=== PATIENT | male | born 1990 | race Caucasian/White ===

== ENCOUNTER 2018-10-14 15:13 | Inpatient (IN) | payer OTHER ==
[2018-10-14] MEDS ORDERED: DOCUSATE SODIUM 100 MG CAP PO (16:00)
[2018-10-14] MEDS ORDERED: ONDANSETRON 4 MG INJ IV (16:00)
[2018-10-14] MEDS ORDERED: NACL 0.9% 3 ML SYG IV (16:00)
[2018-10-14] MEDS: SOD CHLORIDE 0.9% 1,000 ML IV (16:38)
[2018-10-14] MEDS: CEFTRIAXONE 1 GM/50 ML (PMX) 50 ML IVPB (16:38)
[2018-10-14 17:34] LABS: INR 0.96; PROTIME 12.9 Sec (11.9-14.9)
[2018-10-14] MEDS: metroNIDAZOLE 500 MG/NS (PMX) 100 ML IVPB (22:28)
[2018-10-15] MEDS: morphine 2 MG INJ IV ×2 (03:19→07:34)
[2018-10-15 05:21] LABS: ADD MAN DIFF? NO
[2018-10-15 05:27] LABS: BASOPHILS % 0.3 % (0.0-2.0); EOSINOPHILS # 0.2 10^3/ul (0.0-0.5); EOSINOPHILS % 2.1 % (0.0-7.0); HEMATOCRIT 43.7 % (42.0-52.0); HEMOGLOBIN 14.7 g/dl (14.0-18.0); LYMPHOCYTES # 1.9 10^3/ul (0.8-2.9); LYMPHOCYTES % 21.3 % (15.0-51.0); MEAN CORPUSCULAR HEMOGLOBIN 30.7 pg (29.0-33.0); MEAN CORPUSCULAR HGB CONC 33.6 g/dl (32.0-37.0); MEAN CORPUSCULAR VOLUME 91.2 fl (82.0-101.0); MEAN PLATELET VOLUME 9.2 fl (7.4-10.4); MONOCYTE # 0.7 10^3/ul (0.3-0.9); MONOCYTES % 8.2 % (0.0-11.0); NEUTROPHIL # 6.1 10^3/ul (1.6-7.5); NEUTROPHILS % 67.8 % (39.0-77.0); PLATELET COUNT 383 10^3/UL (140-415); RED BLOOD COUNT 4.79 10^6/ul (4.70-6.10)
[2018-10-15] MEDS: metroNIDAZOLE 500 MG/NS (PMX) 100 ML IVPB ×3 (05:31→21:53)
[2018-10-15] MEDS: PANTOPRAZOLE 40 MG INJ IV (05:31)
[2018-10-15] MEDS: SOD CHLORIDE 0.9% 1,000 ML IV ×2 (05:41→10:48)
[2018-10-15 05:53] LABS: ALANINE AMINOTRANSFERASE 38 IU/L (13-69); ALBUMIN 4.9 g/dl (3.3-4.9); ALBUMIN/GLOBULIN RATIO 1.88; ALKALINE PHOSPHATASE 85 IU/L (42-121); ANION GAP 11 (5-13); ASPARTATE AMINO TRANSFERASE 31 IU/L (15-46); BILIRUBIN,INDIRECT 0.4 mg/dl (0-1.1); BILIRUBIN,TOTAL 0.4 mg/dl (0.2-1.3); BLOOD UREA NITROGEN 9 mg/dl (7-20); CALCIUM 9.2 mg/dl (8.4-10.2); CARBON DIOXIDE 30 mmol/L (21-31); CHLORIDE 103 mmol/L (97-110); CREATININE 0.58 mg/dl (0.61-1.24); Estimated GFR > 60 mL/min (>60); GLUCOSE 91 mg/dl (70-220); PHOSPHORUS 4.5 mg/dl (2.5-4.9); POTASSIUM 3.9 mmol/L (3.5-5.1); SODIUM 144 mmol/L (135-144); TOTAL PROTEIN 7.5 g/dl (6.1-8.1)
[2018-10-15] MEDS: HYDROmorphONE 1 MG/ML SYG IV ×4 (08:44→21:53)
[2018-10-15] MEDS ORDERED: INFLUENZA VIRUS VACCINE 0.5 ML (DISPENSING) IM* (09:00)
[2018-10-15] MEDS ORDERED: HYDROmorphONE 1 MG/ML SYG IV (11:01)
[2018-10-15] MEDS: DEXTROSE 5%-0.45% NACL 1,000 ML IV (14:45)
[2018-10-15] MEDS: CEFTRIAXONE 1 GM/50 ML (PMX) 50 ML IVPB (17:37)
[2018-10-16] MEDS: HYDROmorphONE 1 MG/ML SYG IV ×3 (01:50→11:45)
[2018-10-16] MEDS: PANTOPRAZOLE 40 MG INJ IV (05:30)
[2018-10-16] MEDS: metroNIDAZOLE 500 MG/NS (PMX) 100 ML IVPB ×3 (05:30→21:39)
[2018-10-16] MEDS: DEXTROSE 5%-0.45% NACL 1,000 ML IV ×2 (05:31→16:06)
[2018-10-16 05:39] LABS: ADD MAN DIFF? NO
[2018-10-16 05:45] LABS: BASOPHILS % 0.2 % (0.0-2.0); EOSINOPHILS % 0.1 % (0.0-7.0); HEMATOCRIT 46.5 % (42.0-52.0); LYMPHOCYTES # 1.4 10^3/ul (0.8-2.9); LYMPHOCYTES % 8.6 % (15.0-51.0); MEAN CORPUSCULAR HEMOGLOBIN 30.7 pg (29.0-33.0); MEAN CORPUSCULAR HGB CONC 34.4 g/dl (32.0-37.0); MEAN CORPUSCULAR VOLUME 89.1 fl (82.0-101.0); MONOCYTE # 1.4 10^3/ul (0.3-0.9); MONOCYTES % 8.8 % (0.0-11.0); NEUTROPHIL # 13.1 10^3/ul (1.6-7.5); NEUTROPHILS % 81.9 % (39.0-77.0); PLATELET COUNT 407 10^3/UL (140-415); RED BLOOD COUNT 5.22 10^6/ul (4.70-6.10)
[2018-10-16 06:06] LABS: AMYLASE 47 U/L (11-123)
[2018-10-16 06:06] LABS: LIPASE 32 U/L (23-300)
[2018-10-16 06:08] LABS: PHOSPHORUS 3.9 mg/dl (2.5-4.9)
[2018-10-16 06:25] LABS: ALANINE AMINOTRANSFERASE 36 IU/L (13-69); ALBUMIN/GLOBULIN RATIO 1.85; ALKALINE PHOSPHATASE 92 IU/L (42-121); ANION GAP 12 (5-13); ASPARTATE AMINO TRANSFERASE 31 IU/L (15-46); BILIRUBIN,INDIRECT 0.8 mg/dl (0-1.1); BILIRUBIN,TOTAL 0.8 mg/dl (0.2-1.3); BLOOD UREA NITROGEN 8 mg/dl (7-20); CALCIUM 9.3 mg/dl (8.4-10.2); CARBON DIOXIDE 32 mmol/L (21-31); CHLORIDE 95 mmol/L (97-110); CREATININE 0.67 mg/dl (0.61-1.24); Estimated GFR > 60 mL/min (>60); GLUCOSE 129 mg/dl (70-220); POTASSIUM 4.1 mmol/L (3.5-5.1); SODIUM 139 mmol/L (135-144); TOTAL PROTEIN 7.7 g/dl (6.1-8.1)
[2018-10-16] MEDS ORDERED: BUPIVACAINE 0.25%/EPI (SDV) 10 ML INJ (08:23)
[2018-10-16] MEDS ORDERED: LIDOCAINE 1% (STERILE-PAK) 30 ML INJ (08:23)
[2018-10-16] MEDS ORDERED: ROCURONIUM 50 MG INJ (10:49)
[2018-10-16] MEDS ORDERED: PROPOFOL 20 ML (10:49)
[2018-10-16] MEDS ORDERED: MIDAZOLAM 1 MG/ML 2 ML INJ (10:49)
[2018-10-16] MEDS ORDERED: FENTAnyl 50 MCG/ML VIAL (10:49)
[2018-10-16] MEDS ORDERED: ROPIVACAINE 0.2% 20 ML VIAL (10:49)
[2018-10-16] MEDS ORDERED: CEFAZOLIN 1 GM INJ ×2 (10:49→12:28)
[2018-10-16] MEDS ORDERED: PHENYLephrine (100 MCG/ML) 5ML SYG ×2 (12:21→12:36)
[2018-10-16] MEDS ORDERED: metroNIDAZOLE 500 MG/NS (PMX) 100 ML IVPB (12:28)
[2018-10-16] MEDS ORDERED: ONDANSETRON 4 MG INJ IV (13:00)
[2018-10-16] MEDS ORDERED: METOCLOPRAMIDE 10 MG INJ IV (13:00)
[2018-10-16] MEDS ORDERED: LABETALOL HCL 20MG INJ IV (13:00)
[2018-10-16] MEDS ORDERED: MEPERIDINE 25 MG INJ IV (13:00)
[2018-10-16] MEDS ORDERED: DIPHENHYDRAMINE 50 MG INJ IV (13:00)
[2018-10-16] MEDS ORDERED: EPHEDrine SULFATE 50 MG/5 ML SYG IV (13:00)
[2018-10-16] MEDS ORDERED: FENTAnyl 50 MCG/ML VIAL IV ×3 (13:00)
[2018-10-16] MEDS ORDERED: OXYCODONE/ACETAMINOPHEN (5/325) TAB PO (13:00)
[2018-10-16] MEDS ORDERED: HYDROmorphONE 1 MG/5 ML IV SYRINGE IV ×3 (13:00)
[2018-10-16] MEDS ORDERED: hydrALAzine 20 MG INJ IV (13:00)
[2018-10-16] MEDS ORDERED: ONDANSETRON 4 MG INJ (13:02)
[2018-10-16] MEDS ORDERED: DEXAMETHASONE 4 MG/ML 1 ML INJ (13:02)
[2018-10-16] MEDS ORDERED: GLYCOPYRROLATE 0.4 MG INJ (13:02)
[2018-10-16] MEDS ORDERED: KETOROLAC 30 MG INJ (13:02)
[2018-10-16] MEDS ORDERED: METOCLOPRAMIDE 10 MG INJ (13:02)
[2018-10-16] MEDS ORDERED: NEOSTIGMINE 3 MG/3 ML SYRINGE (13:02)
[2018-10-16] MEDS ORDERED: SUGAMMADEX SODIUM 200 MG/2 ML VIAL IV (13:15)
[2018-10-16] MEDS: CEFTRIAXONE 1 GM/50 ML (PMX) 50 ML IVPB (16:20)
[2018-10-17] MEDS: PANTOPRAZOLE 40 MG INJ IV (05:15)
[2018-10-17] MEDS: metroNIDAZOLE 500 MG/NS (PMX) 100 ML IVPB ×3 (05:15→21:52)
[2018-10-17] MEDS: DEXTROSE 5%-0.45% NACL 1,000 ML IV ×2 (05:15→06:24)
[2018-10-17] MEDS: HYDROmorphONE 1 MG/ML SYG IV (06:23)
[2018-10-17 07:48] LABS: ADD MAN DIFF? NO
[2018-10-17 07:51] LABS: BASOPHILS % 0.2 % (0.0-2.0); EOSINOPHILS % 0.1 % (0.0-7.0); HEMATOCRIT 39.1 % (42.0-52.0); HEMOGLOBIN 13.2 g/dl (14.0-18.0); LYMPHOCYTES # 1.4 10^3/ul (0.8-2.9); LYMPHOCYTES % 10.2 % (15.0-51.0); MEAN CORPUSCULAR HEMOGLOBIN 30.8 pg (29.0-33.0); MEAN CORPUSCULAR HGB CONC 33.8 g/dl (32.0-37.0); MEAN CORPUSCULAR VOLUME 91.4 fl (82.0-101.0); MEAN PLATELET VOLUME 9.4 fl (7.4-10.4); MONOCYTE # 1.3 10^3/ul (0.3-0.9); MONOCYTES % 9.6 % (0.0-11.0); NEUTROPHIL # 10.6 10^3/ul (1.6-7.5); NEUTROPHILS % 79.5 % (39.0-77.0); PLATELET COUNT 373 10^3/UL (140-415); RED BLOOD COUNT 4.28 10^6/ul (4.70-6.10); RED CELL DISTRIBUTION WIDTH 12.1 % (11.5-14.5)
[2018-10-17 07:51] LABS: WHITE BLOOD COUNT 13.3 10^3/ul (4.8-10.8)
[2018-10-17 08:18] LABS: ANION GAP 9 (5-13); BLOOD UREA NITROGEN 10 mg/dl (7-20); CALCIUM 8.6 mg/dl (8.4-10.2); CARBON DIOXIDE 29 mmol/L (21-31); CHLORIDE 103 mmol/L (97-110); CREATININE 0.58 mg/dl (0.61-1.24); Estimated GFR > 60 mL/min (>60); GLUCOSE 104 mg/dl (70-220); SODIUM 141 mmol/L (135-144)
[2018-10-17] MEDS: CEFTRIAXONE 1 GM/50 ML (PMX) 50 ML IVPB (16:01)
[2018-10-17] MEDS: HYDROCODONE/APAP (5/325) TAB PO (20:48)
[2018-10-18] MEDS: metroNIDAZOLE 500 MG/NS (PMX) 100 ML IVPB ×2 (06:01→14:03)
[2018-10-18] MEDS: PANTOPRAZOLE 40 MG INJ IV (06:01)
[2018-10-18 06:02] LABS: ADD MAN DIFF? NO
[2018-10-18 06:07] LABS: BASOPHILS % 0.3 % (0.0-2.0); EOSINOPHILS # 0.1 10^3/ul (0.0-0.5); EOSINOPHILS % 1.4 % (0.0-7.0); HEMATOCRIT 38.6 % (42.0-52.0); HEMOGLOBIN 12.7 g/dl (14.0-18.0); LYMPHOCYTES # 2.1 10^3/ul (0.8-2.9); LYMPHOCYTES % 23.8 % (15.0-51.0); MEAN CORPUSCULAR HEMOGLOBIN 30.4 pg (29.0-33.0); MEAN CORPUSCULAR HGB CONC 32.9 g/dl (32.0-37.0); MEAN CORPUSCULAR VOLUME 92.3 fl (82.0-101.0); MONOCYTE # 0.9 10^3/ul (0.3-0.9); MONOCYTES % 10.3 % (0.0-11.0); NEUTROPHIL # 5.7 10^3/ul (1.6-7.5); NEUTROPHILS % 63.9 % (39.0-77.0); PLATELET COUNT 374 10^3/UL (140-415); RED BLOOD COUNT 4.18 10^6/ul (4.70-6.10); RED CELL DISTRIBUTION WIDTH 12.3 % (11.5-14.5)
[2018-10-18 06:07] LABS: WHITE BLOOD COUNT 8.8 10^3/ul (4.8-10.8)
[2018-10-18 07:13] LABS: ANION GAP 8 (5-13); BLOOD UREA NITROGEN 14 mg/dl (7-20); CALCIUM 8.8 mg/dl (8.4-10.2); CARBON DIOXIDE 31 mmol/L (21-31); CHLORIDE 102 mmol/L (97-110); CREATININE 0.62 mg/dl (0.61-1.24); Estimated GFR > 60 mL/min (>60); GLUCOSE 86 mg/dl (70-220); POTASSIUM 3.8 mmol/L (3.5-5.1); SODIUM 141 mmol/L (135-144)
[2018-10-18] MEDS: HYDROCODONE/APAP (5/325) TAB PO (08:39)
[2018-10-18] MEDS: ACETAMINOPHEN 325 MG TAB PO (09:37)
[2018-10-18] MEDS: CEFTRIAXONE 1 GM/50 ML (PMX) 50 ML IVPB (15:38)
== END 2018-10-18 18:00 | disposition home or self-care (01) | DRG 419 ==
LOC: 2NE 15:13
PROC: 0FT44ZZ Resection of Gallbladder, Percutaneous Endoscopic Approach (ICD-10-PCS; principal; 2018-10-16 11:00)
DX: K80.12 Calculus of gallbladder with acute and chronic cholecystitis without obstruction (principal); D64.9 Anemia, unspecified; K82.A1 Gangrene of gallbladder in cholecystitis; E66.3 Overweight; Z68.25 Body mass index [BMI] 25.0-25.9, adult; L70.9 Acne, unspecified
CPT/HCPCS: 71045; 74181; 78226; 80048; 80053; 82150; 83690; 83735; 84100; 85025; 85610; 88304; 90686; 93005